=== PATIENT | female | born 1945 | race American Indian/Alaskan Native ===

== ENCOUNTER 2020-04-03 20:06 | Inpatient (IN) | payer MEDICARE ==
[2020-04-03] MEDS ORDERED: levETIRAcetam 1000 MG/NS 0.75% 1,000 MG/100 ML BAG IV ONE (20:14)
--- NOTE | 2020-04-03 20:14 | Emergency Department Report ---
ED Seizure HPI - General Chief Complaint: Altered Mental Status Stated Complaint: SEIZURE Time Seen by Provider: 04/03/20 20:09 Source: patient, EMS Mode of arrival: Stretcher Limitations: Altered Mental Status - History of Present Illness Initial Comments: Patient is a 74-year-old female that presents emergency room with a witnessed seizure. Patient brought in by EMS. Report received from EMS. EMS states that the patient's seizure witnessed by bystanders. The seizure lasted for 2 to 3 minutes per EMS. EMS states that the patient has a history of diabetes, hypertension, dementia, seizure. EMS states the patient's seizures started 1 month ago. Patient had a stroke 2 weeks ago. Patient denies any symptoms. Patient denies chest pain shortness of breath. Patient denies headache. Patient at this time is alert and oriented x2. Patient is oriented to person. MD Complaint: seizure -: Sudden Description of Episode: loss of consciousness, tonic-clonic movement Witnessed:: Yes Trauma: No Seizure History: known seizure disorder Place: other ED Review of Systems ROS: Stated complaint: SEIZURE Other details as noted in HPI Comment: Unobtainable due to pts medical conditions ED Past Medical Hx - Past Medical History Previous Medical History?: Yes Hx Hypertension: Yes Hx CVA: Yes Hx Seizures: Yes - Surgical History Past Surgical History?: No - Family History Family history: no significant - Social History Smoking Status: Never Smoker Substance Use Type: None ED Physical Exam - General Limitations: No Limitations General appearance: alert, in no apparent distress - Head Head exam: Present: atraumatic, normocephalic - Eye Eye exam: Present: normal appearance, PERRL Pupils: Present: normal accommodation - ENT ENT exam: Present: mucous membranes moist - Neck Neck exam: Present: normal inspection - Respiratory Respiratory exam: Present: normal lung sounds bilaterally. Absent: respiratory distress, wheezes, rales - Cardiovascular Cardiovascular Exam: Present: regular rate, normal rhythm. Absent: systolic murmur, diastolic murmur, rubs, gallop - GI/Abdominal GI/Abdominal exam: Present: soft, normal bowel sounds. Absent: distended, tenderness, guarding - Rectal Rectal exam: Present: deferred - Extremities Exam Extremities exam: Present: normal inspection - Back Exam Back exam: Present: normal inspection - Neurological Exam Neurological exam: Present: alert, altered - Psychiatric Psychiatric exam: Present: normal affect, normal mood - Skin Skin exam: Present: warm, dry, intact, normal color. Absent: rash ED Course Vital Signs 04/03/20 20:14 Temperature 97.9 F Pulse Rate 87 Respiratory 14 Rate Blood Pressure 109/73 [left arm] O2 Sat by Pulse 98 Oximetry - Reevaluation(s) Reevaluation #1: I discussed all results with patient. I discussed plan of care with patient. Patient agrees with plan of care and admission. Patient to be admitted to the hospitalist service. 04/03/20 21:53 - Consultations Consultation #1: Hospitalist consulted for admission. Hospitalist to admit patient. 04/03/20 21:54 ED Medical Decision Making - Lab Data Result diagrams: 04/03/20 20:34 04/03/20 20:34 - EKG Data -: EKG Interpreted by Me EKG shows normal: sinus rhythm, axis, intervals, QRS complexes, ST-T waves Rate: normal - Radiology Data Radiology results: report reviewed . CT cervical spine wo con INDICATION / CLINICAL INFORMATION: 74 years Female; Seizure. TECHNIQUE: Axial CT images of the cervical spine were obtained. Sagittal and coronal reformatted images were produced. All CT scans at this location are performed using CT dose reduction for ALARA by means of automated exposure control. COMPARISON: None available. FINDINGS: POST-SURGICAL CHANGES: None. ALIGNMENT: Straightening of cervical spine seen, which may be related to patient positioning. VERTEBRAE: No signs of fracture. Vertebral bodies are grossly normal in height throughout. There is osseous foraminal narrowing on the left at C3-4, C5-6, C6-7 from uncinate and perhaps mild facet hypertrophy. Similar findings on the right at C3-4, C5-6, C6-7. INTRAVERTEBRAL DISCS: Multilevel, mild disc space narrowing seen. There is disc disease at C3-4 which encroaches upon the cervical cord. No impingement appreciated. No dominant herniation otherwise noted. PARASPINAL SOFT TISSUES: No significant abnormality. ADDITIONAL FINDINGS: Scarring type changes seen in the right lung apex. Thyroid gland is mildly prominent in size. IMPRESSION: 1. No signs of acute bony trauma to the cervical spine. CT head/brain wo con INDICATION / CLINICAL INFORMATION: 74 years Female; Seizure. TECHNIQUE: Routine CT head without contrast. All CT scans at this location are performed using CT dose reduction for ALARA by means of automated exposure control. COMPARISON: None. FINDINGS: BRAIN / INTRACRANIAL CONTENTS: Corpus striatal type infarct seen anteriorly in the gangliocapsular region on the mudb-hgj-djqjfwlqxncft without diffusion imaging by MRI. Multiple lacunar infarcts seen in the gangliocapsular regions, as well as both thalamic regions, as well. Otherwise, no acute hemorrhage, mass effect, midline shift, hydrocephalus, or acute, large territorial infarct. Mild cerebral and cerebellar atrophy. Mild to moderate degree of hippocampal atrophy suggested bilaterally. There are mild areas of decreased attenuation in the white matter of the cerebral hemispheres, as well as the gangliocapsular regions. These are nonspecific findings and may be related to microangiopathy (hypertension, diabetes, atherosclerosis), given the patient's age. It might be difficult to evaluate for small areas of ischemia without diffusion imaging by MRI. CRANIOCERVICAL JUNCTION: No significant abnormality. ORBITS: No significant abnormality of visualized orbits. SINUSES / MASTOIDS: No significant abnormality in the visualized paranasal sinuses or mastoid air cells. ADDITIONAL FINDINGS: Atherosclerotic disease is seen in the anterior and posterior circulation. IMPRESSION: 1. No focal mass, hemorrhage, hydrocephalus, or acute, large territorial infarct. Follow-up with diffusion imaging by MRI, as clinically warranted. - Medical Decision Making Patient is a 74-year-old female that presents emergency room with seizure and altered mental status. Patient's baseline mentation is unknown. Patient has history of dementia. Patient was at a nail salon and went into a grand mal seizure that was witnessed. It is unclear from the report from EMS if the patient had any trauma or fall. Patient had a CT scan of the C-spine and of the head to rule out neck injury and head injury and intracranial hemorrhage. Patient has a recent history of seizures. Patient's labs are unremarkable. Patient's EKG is unremarkable. Patient admitted to the hospital service for further evaluation and treatment. Patient will most likely require a EEG and neurology consult. - Differential Diagnosis Seizure, altered mental status, confusion, dehydration, electrolyte imbalan Critical Care Time: Yes Critical care time in (mins) excluding proc time.: 35 Critical care attestation.: If time is entered above; I have spent that time in minutes in the direct care of this critically ill patient, excluding procedure time. Critical Care Time: 35 minutes ED Disposition Clinical Impression: Seizure Altered mental state Qualifiers: Altered mental status type: unspecified Qualified Code(s): R41.82 - Altered mental status, unspecified Disposition: DC-09 OP ADMIT IP TO THIS HOSP Is pt being admited?: Yes Does the pt Need Aspirin: No Condition: Critical Time of Disposition: 21:53
[2020-04-03 20:48] LABS: Basophils % (Auto) 0.8 % (0.0-1.8); Eosinophils # (Auto) 0.1 K/mm3 (0.0-0.4); Eosinophils % (Auto) 1.7 % (0.0-4.3); Hematocrit 31.4 % (30.3-42.9); Hemoglobin 10.1 gm/dl (10.1-14.3); Lymphocytes % (Auto) 17.9 % (13.4-35.0); Mean Corpuscular HGB Conc 32 % (30-34); Mean Corpuscular Volume 92 fl (79-97); Monocytes # (Auto) 0.4 K/mm3 (0.0-0.8); Monocytes % (Auto) 6.8 % (0.0-7.3); Platelet Count 352 K/mm3 (140-440); Red Blood Count 3.41 M/mm3 (3.65-5.03); Red Cell Distribution Width 13.9 % (13.2-15.2)
[2020-04-03 21:14] LABS: Albumin 3.6 g/dL (3.9-5); Calcium 8.6 mg/dL (8.4-10.2)
--- NOTE | 2020-04-03 21:33 | Cat Scan Report ---
CT head/brain wo con INDICATION / CLINICAL INFORMATION: 74 years Female; Seizure. TECHNIQUE: Routine CT head without contrast. All CT scans at this location are performed using CT dos e reduction for ALARA by means of automated exposure control. COMPARISON: None. FINDINGS: BRAIN / INTRACRANIAL CONTENTS: Corpus striatal type infarct seen anteriorly in the gangliocapsular re gion on the eqao-xpy-mcfuqxbonofgm without diffusion imaging by MRI. Multiple lacunar infarcts seen i n the gangliocapsular regions, as well as both thalamic regions, as well. Otherwise, no acute hemorrhage, mass effect, midline shift, hydrocephalus, or acute, large territori al infarct. Mild cerebral and cerebellar atrophy. Mild to moderate degree of hippocampal atrophy suggested bilate rally. There are mild areas of decreased attenuation in the white matter of the cerebral hemispheres, as wel l as the gangliocapsular regions. These are nonspecific findings and may be related to microangiopath y (hypertension, diabetes, atherosclerosis), given the patient's age. It might be difficult to evalua te for small areas of ischemia without diffusion imaging by MRI. CRANIOCERVICAL JUNCTION: No significant abnormality. ORBITS: No significant abnormality of visualized orbits. SINUSES / MASTOIDS: No significant abnormality in the visualized paranasal sinuses or mastoid air deo ls. ADDITIONAL FINDINGS: Atherosclerotic disease is seen in the anterior and posterior circulation. IMPRESSION: 1. No focal mass, hemorrhage, hydrocephalus, or acute, large territorial infarct. Follow-up with diff usion imaging by MRI, as clinically warranted. Signer Name: Humza Ruelas MD, III Signed: 04/03/2020 9:29 PM Workstation Name: [email or web address]
--- NOTE | 2020-04-03 21:41 | Cat Scan Report ---
. CT cervical spine wo con INDICATION / CLINICAL INFORMATION: 74 years Female; Seizure. TECHNIQUE: Axial CT images of the cervical spine were obtained. Sagittal and coronal reformatted images were pr oduced. All CT scans at this location are performed using CT dose reduction for ALARA by means of aut omated exposure control. COMPARISON: None available. FINDINGS: POST-SURGICAL CHANGES: None. ALIGNMENT: Straightening of cervical spine seen, which may be related to patient positioning. VERTEBRAE: No signs of fracture. Vertebral bodies are grossly normal in height throughout. There is osseous foraminal narrowing on the left at C3-4, C5-6, C6-7 from uncinate and perhaps mild f acet hypertrophy. Similar findings on the right at C3-4, C5-6, C6-7. INTRAVERTEBRAL DISCS: Multilevel, mild disc space narrowing seen. There is disc disease at C3-4 which encroaches upon the cervical cord. No impingement appreciated. No dominant herniation otherwise note d. PARASPINAL SOFT TISSUES: No significant abnormality. ADDITIONAL FINDINGS: Scarring type changes seen in the right lung apex. Thyroid gland is mildly prominent in size. IMPRESSION: 1. No signs of acute bony trauma to the cervical spine. Signer Name: Humza Ruelas MD, III Signed: 04/03/2020 9:37 PM Workstation Name: [id number]
[2020-04-03 22:09] LABS: Bilirubin,Urine NEG (Negative); Blood,Urine NEG (Negative); Color,Urine Yellow (Yellow); Hyaline Casts,Urine 7 /LPF; Mucus,Urine 1+ /HPF; Protein,Urine <15 mg/dL mg/dL (Negative); Urobilinogen,Urine < 2.0 mg/dL (<2.0); WBC,Urine < 1.0 /HPF (0.0-6.0)
[2020-04-03 22:17] LABS: Amphetamine Screen,Urine Negative; Benzodiazepines Screen,Urine Negative; Cannabinoid Screen,Urine Negative; Cocaine Screen,Urine Negative; Methadone Screen,Urine Negative; Opiate Screen,Urine Negative
[2020-04-03] MEDS ORDERED: MORPHINE 2 MG/1 ML INJ IV PRN (23:04)
[2020-04-03] MEDS ORDERED: ACETAMINOPHEN 325 MG TAB PO PRN (23:04)
[2020-04-03] MEDS ORDERED: ONDANSETRON 4 MG/2 ML INJ IV PRN (23:04)
[2020-04-03] MEDS ORDERED: MAGNESIUM HYDROXIDE (MOM) ORAL LIQD UDC PO PRN (23:04)
[2020-04-03] MEDS ORDERED: DEXTROSE 50% IN WATER (25GM) 50 ML SYRINGE IV PRN (23:04)
[2020-04-03] MEDS ORDERED: LORazepam 2 MG/ML VIAL IV PRN (23:09)
--- NOTE | 2020-04-03 23:21 | History and Physical Report ---
History of Present Illness Date of examination: 04/03/20 Date of admission: 04/03/20 21:52 Chief complaint: Seizure Disorder History of present illness: 74-year-old female with known history of dementia, hypertension, diabetes mellitus and history of CVA 2 weeks ago brought into the emergency room today via EMS however had a seizure witnessed by bystanders. Seizure was said to have lasted for about 2 to 3 minutes. Most of the history was gotten from the ER staff as patient is only oriented to person. Work-up so far in the emergency room including CT scan of the head and neck has been unremarkable. Patient has been started on Keppra for the seizure disorder. Past History Past Medical History: hypertension, seizures, stroke, other (Dementia) Past Surgical History: No surgical history Social history: no significant social history Family history: no significant family history Medications and Allergies Allergies Allergy/AdvReac Type Severity Reaction Status Date / Time No Known Allergies Allergy Unverified 04/03/20 23:33 Home Medications Medication Instructions Recorded Confirmed Last Taken Type Aspirin 04/04/20 Unknown History AtorvaSTATin 04/04/20 Unknown History Mirapex 04/04/20 Unknown History Namenda Xr 04/04/20 Unknown History Plavix 04/04/20 Unknown History Potassium 04/04/20 Unknown History RisperDAL 04/04/20 Unknown History amLODIPine 04/04/20 Unknown History donepeziL 04/04/20 Unknown History metFORMIN 04/04/20 Unknown History traZODone 04/04/20 Unknown History Active Meds: Active Medications Acetaminophen (Tylenol) 650 mg PO Q4H PRN PRN Reason: Pain MILD(1-3)/Fever >100.5/ABDI Dextrose (D50w (25gm) Syringe) 50 ml IV Q30MIN PRN; Protocol PRN Reason: Hypoglycemia Heparin Sodium (Porcine) (Heparin) 5,000 unit SUB-Q Q8HR LIZZETH Sodium Chloride (Nacl 0.9% 1000 Ml) 1,000 mls @ 75 mls/hr IV DIRECT LIZZETH Levetiracetam 500 mg/ Dextrose 105 mls @ 400 mls/hr IV Q12HR LIZZETH Insulin Human Lispro (Humalog) 0 unit SUB-Q ACHS LIZZETH; Protocol Lorazepam (Ativan) 1 mg IV Q4H PRN PRN Reason: Seizures Magnesium Hydroxide (Milk Of Magnesia) 30 ml PO Q4H PRN PRN Reason: Constipation Morphine Sulfate (Morphine) 2 mg IV Q4H PRN PRN Reason: Pain, Moderate (4-6) Ondansetron HCl (Zofran) 4 mg IV Q8H PRN PRN Reason: Nausea And Vomiting Sodium Chloride (Sodium Chloride Flush Syringe 10 Ml) 10 ml IV BID LIZZETH Sodium Chloride (Sodium Chloride Flush Syringe 10 Ml) 10 ml IV PRN PRN PRN Reason: LINE FLUSH Review of Systems ROS unobtainable: due to mental status Exam - Constitutional Vitals: Temp Pulse Resp BP Pulse Ox 97.9 F 87 14 109/73 98 04/03/20 20:14 04/03/20 20:14 04/03/20 20:14 04/03/20 20:14 04/03/20 20:14 General appearance: Present: no acute distress, well-nourished - EENT Eyes: Present: PERRL, EOM intact. Absent: scleral icterus ENT: hearing intact, clear oral mucosa, dentition normal - Neck Neck: Present: supple, normal ROM - Respiratory Respiratory effort: normal Respiratory: bilateral: CTA - Cardiovascular Rhythm: regular Heart Sounds: Present: S1 & S2. Absent: gallop, systolic murmur, diastolic murmur, rub - Extremities Extremities: no ischemia, pulses intact, pulses symmetrical, No edema, Full ROM Peripheral Pulses: within normal limits - Abdominal General gastrointestinal: Present: soft, non-tender, non-distended, normal bowel sounds, mass - Integumentary Integumentary: Present: clear, warm, dry. Absent: rash - Musculoskeletal Musculoskeletal: strength equal bilaterally - Psychiatric Psychiatric: appropriate mood/affect, intact judgment & insight, memory intact, cooperative - Neurologic Neurologic: CNII-XII intact, no focal deficits, moves all extremities Results - Labs CBC & Chem 7: 04/03/20 20:34 04/03/20 20:34 Labs: Abnormal lab results 04/03/20 04/03/20 Range/Units 20:34 20:34 RBC 3.41 L (3.65-5.03) M/mm3 Lymph # (Auto) 1.0 L (1.2-5.4) K/mm3 Seg Neutrophils % 72.8 H (40.0-70.0) % Carbon Dioxide 21 L (22-30) mmol/L Glucose 110 H (65-100) mg/dL Total Protein 5.8 L (6.3-8.2) g/dL Albumin 3.6 L (3.9-5) g/dL Assessment and Plan - Patient Problems (1) Seizure Current Visit: Yes Status: Acute Plan to address problem: Patient started on Keppra. Will place on seizure precautions. We will requests neurology evaluation. (2) Altered mental state Current Visit: Yes Status: Acute Qualifiers: Altered mental status type: unspecified Qualified Code(s): R41.82 - Altered mental status, unspecified Plan to address problem: Patient possibly postictal however patient has a baseline history of dementia. Will monitor mental status. (3) Hypertension Current Visit: Yes Status: Acute Plan to address problem: We will resume routine home medications and monitor vital signs closely. (4) Diabetes mellitus Current Visit: Yes Status: Acute Plan to address problem: We will continue to monitor Accu-Cheks. (5) DVT prophylaxis Current Visit: Yes Status: Acute Plan to address problem: Patient placed on subcutaneous heparin. (6) Full code status Current Visit: Yes Status: Acute
[2020-04-03] MEDS ORDERED: SODIUM CHLORIDE 0.9% 1000 ML 1,000 ML ONE (23:47)
[2020-04-04] MEDS: SODIUM CHLORIDE 0.9% 1000 ML 1,000 ML IV SCH ×2 (00:15→14:08)
[2020-04-04] MEDS: HEPARIN 5,000 UNIT/1 ML VIAL SUB-Q SCH ×3 (06:50→22:17)
[2020-04-04 08:04] LABS: Basophils % (Auto) 0.6 % (0.0-1.8); Eosinophils # (Auto) 0.1 K/mm3 (0.0-0.4); Hematocrit 31.1 % (30.3-42.9); Hemoglobin 10.3 gm/dl (10.1-14.3); Lymphocytes # (Auto) 1.3 K/mm3 (1.2-5.4); Lymphocytes % (Auto) 22.4 % (13.4-35.0); Mean Corpuscular HGB Conc 33 % (30-34); Mean Corpuscular Volume 90 fl (79-97); Monocytes # (Auto) 0.5 K/mm3 (0.0-0.8); Monocytes % (Auto) 8.9 % (0.0-7.3); Platelet Count 318 K/mm3 (140-440); Red Blood Count 3.47 M/mm3 (3.65-5.03); Red Cell Distribution Width 13.6 % (13.2-15.2)
[2020-04-04 08:14] LABS: INR 1.05 (0.87-1.13)
[2020-04-04 08:17] LABS: Calcium 8.6 mg/dL (8.4-10.2)
--- NOTE | 2020-04-04 09:30 | Progress Note ---
Assessment and Plan (1) Seizure Current Visit: Yes Status: Acute Plan to address problem: Patient started on Keppra. Will place on seizure precautions. We will requests neurology evaluation. (2) Acute metabolic encephalopathy Current Visit: Yes Status: Acute Qualifiers: Altered mental status type: unspecified Qualified Code(s): R41.82 - Altered mental status, unspecified Plan to address problem: Secondary to seizures and hypoglycemia MRI pending (3) Hypertension Current Visit: Yes Status: Acute Plan to address problem: We will resume routine home medications and monitor vital signs closely. (4) Diabetes mellitus Current Visit: Yes Status: Acute Plan to address problem: We will continue to monitor Accu-Cheks. (5) DVT prophylaxis Current Visit: Yes Status: Acute Plan to address problem: Patient placed on subcutaneous heparin. (6) Full code status Current Visit: Yes Status: Acute Subjective Date of service: 04/04/20 Principal diagnosis: Acute encephalopathy, seizure disorder Interval history: 74-year-old female with known history of dementia, hypertension, diabetes mellitus and history of CVA 2 weeks ago brought into the emergency room via EMS for a seizure witnessed by bystanders. Seizure was said to have lasted for about 2 to 3 minutes. Most of the history was gotten from the ER staff as patient is only oriented to person. Work-up so far in the emergency room including CT scan of the head and neck has been unremarkable. Patient has been started on Keppra for the seizure disorder. Objective - Constitutional Vitals: Vital Signs - 12hr 04/03/20 04/03/20 04/03/20 21:46 22:00 22:15 Temperature Pulse Rate 71 81 76 Respiratory 13 12 12 Rate Blood Pressure 119/54 119/54 119/54 O2 Sat by Pulse 100 100 100 Oximetry 04/03/20 04/03/20 04/03/20 22:31 22:45 23:00 Temperature Pulse Rate 73 71 70 Respiratory 11 L 11 L 13 Rate Blood Pressure 127/56 127/56 98/58 O2 Sat by Pulse 100 100 100 Oximetry 04/03/20 04/03/20 04/04/20 23:15 23:57 00:00 Temperature Pulse Rate 73 67 71 Respiratory 11 L 10 L Rate Blood Pressure 98/58 124/67 O2 Sat by Pulse 100 100 100 Oximetry 04/04/20 04/04/20 04/04/20 00:15 00:43 05:14 Temperature 97.6 F Pulse Rate 79 79 81 Respiratory 12 16 Rate Blood Pressure 124/67 144/65 O2 Sat by Pulse 99 99 Oximetry 04/04/20 07:44 Temperature 97.9 F Pulse Rate 82 Respiratory 18 Rate Blood Pressure 126/65 O2 Sat by Pulse 99 Oximetry General appearance: Present: no acute distress, well-nourished - EENT Eyes: PERRL, EOM intact ENT: hearing intact, clear oral mucosa Ears: bilateral: normal - Neck Neck: supple, normal ROM - Respiratory Respiratory effort: normal Respiratory: bilateral: CTA - Breasts Breasts: normal - Cardiovascular Heart rate: 78 Rhythm: regular Heart Sounds: Present: S1 & S2. Absent: gallop, rub Extremities: pulses intact, No edema, normal color, Full ROM - Gastrointestinal General gastrointestinal: Present: soft, non-tender, non-distended, normal bowel sounds - Genitourinary Female genitourinary: normal - Integumentary Integumentary: clear, warm, dry - Musculoskeletal Musculoskeletal: strength equal bilaterally, generalized weakness - Neurologic Neurologic: moves all extremities - Psychiatric Psychiatric: appropriate mood/affect, other (Oriented to person, alert.) - Labs CBC & Chem 7: 04/04/20 07:06 04/04/20 07:06 Labs: Abnormal lab results 04/03/20 04/03/20 04/04/20 Range/Units 20:34 20:34 07:06 RBC 3.41 L 3.47 L (3.65-5.03) M/mm3 [place] % (Auto) 8.9 H (0.0-7.3) % Lymph # (Auto) 1.0 L (1.2-5.4) K/mm3 Seg Neutrophils % 72.8 H (40.0-70.0) % Sodium (137-145) mmol/L Carbon Dioxide 21 L (22-30) mmol/L Creatinine (0.6-1.2) mg/dL Glucose 110 H (65-100) mg/dL POC Glucose (70-105) mg/dL Total Protein 5.8 L (6.3-8.2) g/dL Albumin 3.6 L (3.9-5) g/dL 04/04/20 04/04/20 Range/Units 07:06 08:03 RBC (3.65-5.03) M/mm3 [place] % (Auto) (0.0-7.3) % Lymph # (Auto) (1.2-5.4) K/mm3 Seg Neutrophils % (40.0-70.0) % Sodium 135 L (137-145) mmol/L Carbon Dioxide 21 L (22-30) mmol/L Creatinine 1.3 H (0.6-1.2) mg/dL Glucose 50 L (65-100) mg/dL POC Glucose 63 L (70-105) mg/dL Total Protein (6.3-8.2) g/dL Albumin (3.9-5) g/dL
[2020-04-04] MEDS: INSULIN LISPRO 100 UNIT/ML VIAL 3 mL SUB-Q SCH ×4 (10:16→21:28)
[2020-04-04] MEDS: levETIRAcetam 500 MG in DEXTROSE 5% IN WATER 100 ML IV SCH ×2 (10:18→22:17)
--- NOTE | 2020-04-04 16:05 | Progress Note ---
Assessment and Plan (1) Seizure Current Visit: Yes Status: Acute Plan to address problem: Patient started on Keppra. Will place on seizure precautions. We will requests neurology evaluation. (2) Acute metabolic encephalopathy Current Visit: Yes Status: Acute Qualifiers: Altered mental status type: unspecified Qualified Code(s): R41.82 - Altered mental status, unspecified Plan to address problem: Secondary to seizures and hypoglycemia MRI pending (3) Hypertension Current Visit: Yes Status: Acute Plan to address problem: We will resume routine home medications and monitor vital signs closely. (4) Diabetes mellitus Current Visit: Yes Status: Acute Plan to address problem: We will continue to monitor Accu-Cheks. (5) DVT prophylaxis Current Visit: Yes Status: Acute Plan to address problem: Patient placed on subcutaneous heparin. (6) ALEJANDRA IV fluids for now ALEJANDRA secondary to vasomotor nephropathy and dehydration Subjective Date of service: 04/04/20 Principal diagnosis: Seizure disorder, acute encephalopathy Interval history: 74-year-old female with known history of dementia, hypertension, diabetes mellitus and history of CVA 2 weeks ago brought into the emergency room via EMS for a seizure witnessed by bystanders. Seizure was said to have lasted for about 2 to 3 minutes. Most of the history was gotten from the ER staff as patient is only oriented to person. Work-up so far in the emergency room including CT scan of the head and neck has been unremarkable. Patient has been started on Keppra for the seizure disorder. Patient alert but not eating No seizures Objective - Constitutional Vitals: Vital Signs - 12hr 04/04/20 04/04/20 04/04/20 05:14 07:44 10:00 Temperature 97.6 F 97.9 F Pulse Rate 81 82 70 Respiratory 16 18 Rate Blood Pressure 144/65 126/65 O2 Sat by Pulse 99 99 Oximetry General appearance: Present: no acute distress, well-nourished - EENT Eyes: PERRL, EOM intact ENT: hearing intact, clear oral mucosa Ears: bilateral: normal - Neck Neck: supple, normal ROM - Respiratory Respiratory effort: normal Respiratory: bilateral: CTA - Breasts Breasts: normal - Cardiovascular Heart rate: 78 Rhythm: regular Heart Sounds: Present: S1 & S2. Absent: gallop, rub Extremities: pulses intact, No edema, normal color, Full ROM - Gastrointestinal General gastrointestinal: Present: soft, non-tender, non-distended, normal bowel sounds - Genitourinary Female genitourinary: normal - Integumentary Integumentary: clear, warm, dry - Musculoskeletal Musculoskeletal: 1, strength equal bilaterally - Neurologic Neurologic: moves all extremities - Psychiatric Psychiatric: memory intact, appropriate mood/affect, intact judgment & insight - Labs CBC & Chem 7: 04/04/20 07:06 04/04/20 07:06 Labs: Abnormal lab results 04/03/20 04/03/20 04/04/20 Range/Units 20:34 20:34 07:06 RBC 3.41 L 3.47 L (3.65-5.03) M/mm3 [place] % (Auto) 8.9 H (0.0-7.3) % Lymph # (Auto) 1.0 L (1.2-5.4) K/mm3 Seg Neutrophils % 72.8 H (40.0-70.0) % Sodium (137-145) mmol/L Carbon Dioxide 21 L (22-30) mmol/L Creatinine (0.6-1.2) mg/dL Glucose 110 H (65-100) mg/dL POC Glucose (70-105) mg/dL Total Protein 5.8 L (6.3-8.2) g/dL Albumin 3.6 L (3.9-5) g/dL 04/04/20 04/04/20 04/04/20 Range/Units 07:06 08:03 12:10 RBC (3.65-5.03) M/mm3 [place] % (Auto) (0.0-7.3) % Lymph # (Auto) (1.2-5.4) K/mm3 Seg Neutrophils % (40.0-70.0) % Sodium 135 L (137-145) mmol/L Carbon Dioxide 21 L (22-30) mmol/L Creatinine 1.3 H (0.6-1.2) mg/dL Glucose 50 L (65-100) mg/dL POC Glucose 63 L 137 H (70-105) mg/dL Total Protein (6.3-8.2) g/dL Albumin (3.9-5) g/dL
[2020-04-05] MEDS: SODIUM CHLORIDE 0.9% 1000 ML 1,000 ML IV SCH ×2 (05:44→21:24)
[2020-04-05] MEDS: HEPARIN 5,000 UNIT/1 ML VIAL SUB-Q SCH ×3 (05:45→21:23)
[2020-04-05] MEDS: INSULIN LISPRO 100 UNIT/ML VIAL 3 mL SUB-Q SCH ×4 (08:04→21:24)
[2020-04-05] MEDS: levETIRAcetam 500 MG in DEXTROSE 5% IN WATER 100 ML IV SCH ×2 (09:43→21:24)
--- NOTE | 2020-04-05 13:15 | Progress Note ---
Assessment and Plan (1) Seizure Current Visit: Yes Status: Acute Plan to address problem: Patient started on Keppra. Will place on seizure precautions. We will requests neurology evaluation. (2) Acute metabolic encephalopathy Current Visit: Yes Status: Acute Qualifiers: Altered mental status type: unspecified Qualified Code(s): R41.82 - Altered mental status, unspecified Plan to address problem: Secondary to seizures and hypoglycemia MRI pending (3) Hypertension Current Visit: Yes Status: Acute Plan to address problem: We will resume routine home medications and monitor vital signs closely. (4) Diabetes mellitus Current Visit: Yes Status: Acute Plan to address problem: We will continue to monitor Accu-Cheks. (5) DVT prophylaxis Current Visit: Yes Status: Acute Plan to address problem: Patient placed on subcutaneous heparin. (6) ALEJANDRA IV fluids for now ALEJANDRA secondary to vasomotor nephropathy and dehydration Subjective Date of service: 04/05/20 Principal diagnosis: Seizure disorder, acute encephalopathy Interval history: 74-year-old female with known history of dementia, hypertension, diabetes mellitus and history of CVA 2 weeks ago brought into the emergency room via EMS for a seizure witnessed by bystanders. Seizure was said to have lasted for about 2 to 3 minutes. Most of the history was gotten from the ER staff as patient is only oriented to person. Work-up so far in the emergency room including CT scan of the head and neck has been unremarkable. Patient has been started on Keppra for the seizure disorder. Patient alert but not eating No seizures Objective - Constitutional Vitals: Vital Signs - 12hr 04/05/20 04/05/20 04/05/20 03:38 07:07 10:00 Temperature 98.0 F 98.3 F Pulse Rate 83 75 71 Respiratory 18 18 Rate Blood Pressure 147/71 136/67 O2 Sat by Pulse 98 99 Oximetry General appearance: Present: no acute distress, well-nourished - EENT Eyes: PERRL, EOM intact ENT: hearing intact, clear oral mucosa Ears: bilateral: normal - Neck Neck: supple, normal ROM - Respiratory Respiratory effort: normal Respiratory: bilateral: CTA - Breasts Breasts: normal - Cardiovascular Heart rate: 78 Rhythm: regular Heart Sounds: Present: S1 & S2. Absent: gallop, rub Extremities: pulses intact, No edema, normal color, Full ROM - Gastrointestinal General gastrointestinal: Present: soft, non-tender, non-distended, normal bowel sounds - Genitourinary Female genitourinary: normal - Integumentary Integumentary: clear, warm, dry - Musculoskeletal Musculoskeletal: 1, strength equal bilaterally - Neurologic Neurologic: moves all extremities - Psychiatric Psychiatric: other - Allied health notes Allied health notes reviewed: nursing, case management - Labs CBC & Chem 7: 04/04/20 07:06 04/04/20 07:06 Labs: Abnormal lab results 04/05/20 Range/Units 11:29 POC Glucose 138 H (70-105) mg/dL
[2020-04-06] MEDS: HEPARIN 5,000 UNIT/1 ML VIAL SUB-Q SCH ×2 (05:01→13:09)
--- NOTE | 2020-04-06 08:26 | Magnetic Resonance Report ---
MR brain wo con INDICATION / CLINICAL INFORMATION: AMS. TECHNIQUE: Multiplanar, multisequence MR images of the brain were obtained. COMPARISON: None available. FINDINGS: INTRACRANIAL: No restricted diffusion. Remote right carrera radiata lacunar infarction. No hemorrhage. Ventricular caliber is normal. No extra-axial collection. No mass. No herniation. Major intracrania l vascular flow voids are preserved. Generalized atrophy. Periventricular and centrum semiovale T2 wh ite matter hyperintensities most consistent with sequela of chronic microvascular disease. ORBITS: No significant abnormality of visualized orbits. SINUSES / MASTOIDS: No significant abnormality of visualized sinuses and mastoid air cells. ADDITIONAL FINDINGS: None. IMPRESSION: 1. No acute intracranial abnormality. Signer Name: Gold Jhaveri MD Signed: 04/06/2020 8:22 AM Workstation Name: [id number]
--- NOTE | 2020-04-06 09:37 | Discharge Summary ---
Providers - Providers Date of Admission: 04/03/20 21:52 Date of discharge: 04/06/20 Attending physician: TIMOTHY SHELTON 04/03/20 23:04 Consult to Dietitian/Nutrition [CONS] Routine Physician Instructions: Reason For Exam: Reason for Consult: Diet education Consult to Physician [CONS] Routine Comment: Consulting Provider: SAM PATEL Physician Instructions: Reason For Exam: Seizure disorder Primary care physician: CAREERS COUNSELLOR Hospitalization Condition: Critical Hospital course: Subjective Date of service: 04/06/20 Principal diagnosis: Seizure disorder, acute encephalopathy Interval history: 74-year-old female with known history of dementia, hypertension, diabetes mellitus and history of CVA 2 weeks ago brought into the emergency room via EMS for a seizure witnessed by bystanders. Seizure was said to have lasted for about 2 to 3 minutes. Most of the history was gotten from the ER staff as patient is only oriented to person. Work-up so far in the emergency room including CT scan of the head and neck has been unremarkable. Patient has been started on Keppra for the seizure disorder. Patient alert but not eating No seizures Patient has poor p.o. intake discussed with daughter about her poor p.o. intake and possible PEG tube requirement in the future This to be done as an outpatient. Advised advised about Ensure 1 can twice a day Statins and Metformin was stopped for the time being because of polypharmacy and her blood glucose levels being controlled (1) Seizure Current Visit: Yes Status: Acute Plan to address problem: Patient started on Keppra. Will place on seizure precautions. We will requests neurology evaluation. (2) Acute metabolic encephalopathy Current Visit: Yes Status: Acute Qualifiers: Altered mental status type: unspecified Qualified Code(s): R41.82 - Altered mental status, unspecified Plan to address problem: Secondary to seizures and hypoglycemia MRI pending (3) Hypertension Current Visit: Yes Status: Acute Plan to address problem: We will resume routine home medications and monitor vital signs closely. (4) Diabetes mellitus Current Visit: Yes Status: Acute Plan to address problem: We will continue to monitor Accu-Cheks. (5) DVT prophylaxis Current Visit: Yes Status: Acute Plan to address problem: Patient placed on subcutaneous heparin. (6) ALEJANDRA IV fluids for now ALEJANDRA secondary to vasomotor nephropathy and dehydration Disposition: DC- TO HOME OR SELFCARE Core Measure Documentation - Palliative Care Palliative Care/ Comfort Measures: Not Applicable - Core Measures Any of the following diagnoses?: none Exam - Constitutional Vitals: Temp Pulse Resp BP Pulse Ox 98.3 F 75 18 147/74 100 04/06/20 08:38 04/06/20 08:38 04/06/20 08:38 04/06/20 08:37 04/06/20 08:38 General appearance: Present: no acute distress, well-nourished - EENT Eyes: Present: PERRL ENT: hearing intact, clear oral mucosa - Neck Neck: Present: supple, normal ROM - Respiratory Respiratory effort: normal Respiratory: bilateral: CTA - Cardiovascular Heart rate: 78 Rhythm: regular Heart Sounds: Present: S1 & S2. Absent: rub, click - Extremities Extremities: pulses symmetrical, No edema Peripheral Pulses: within normal limits - Abdominal General gastrointestinal: Present: soft, non-tender, non-distended, normal bowel sounds Female genitourinary: Present: normal - Integumentary Integumentary: Present: clear, warm, dry - Musculoskeletal Musculoskeletal: gait normal, strength equal bilaterally - Psychiatric Psychiatric: appropriate mood/affect, intact judgment & insight - Neurologic Neurologic: CNII-XII intact, moves all extremities - Allied Health Allied health notes reviewed: nursing, case management Plan Follow up with: PRIMARY CARE, [Primary Care Provider] - 3-5 Days Prescriptions: amLODIPine 10 mg PO DAILY #30 Aspirin 325 mg PO DAILY #30 levETIRAcetam [Keppra TAB] 500 mg PO BID #60 tablet Namenda Xr 10 mg PO BID #60 Plavix 75 mg PO QDAY #30 RisperDAL 0.5 mg PO QHS #30 traZODone 50 mg PO QHS #30
[2020-04-06] MEDS: levETIRAcetam 500 MG in DEXTROSE 5% IN WATER 100 ML IV SCH (09:49)
[2020-04-06] MEDS: INSULIN LISPRO 100 UNIT/ML VIAL 3 mL SUB-Q SCH ×3 (09:50→17:01)
--- NOTE | 2020-04-06 12:08 | Consultation ---
History of Present Illness Consult date: 04/06/20 Reason for Consult: Seizure Chief complaint: Seizure History of present illness: 74 yo female with dementia, hypertension, diabetes mellitus, seizure d/o, and history of CVA 2 weeks ago who presents w/ a witnessed seizure. Over the weekend no further seizure activity noted. Patient does not know why she is here and states she feels fine currently. Past History Past Medical History: hypertension, seizures, stroke, other (Dementia) Past Surgical History: No surgical history Social history: no significant social history Family history: no significant family history Medications and Allergies Allergies Allergy/AdvReac Type Severity Reaction Status Date / Time No Known Allergies Allergy Unverified 04/03/20 23:33 Home Medications Medication Instructions Recorded Confirmed Last Taken Type Aspirin 325 mg PO DAILY #30 04/06/20 Unknown Rx Namenda Xr 10 mg PO BID #60 04/06/20 Unknown Rx Plavix 75 mg PO QDAY #30 04/06/20 Unknown Rx RisperDAL 0.5 mg PO QHS #30 04/06/20 Unknown Rx amLODIPine 10 mg PO DAILY #30 04/06/20 Unknown Rx levETIRAcetam [Keppra TAB] 500 mg PO BID #60 tablet 04/06/20 Unknown Rx traZODone 50 mg PO QHS #30 04/06/20 Unknown Rx Active Meds: Active Medications Acetaminophen (Tylenol) 650 mg PO Q4H PRN PRN Reason: Pain MILD(1-3)/Fever >100.5/ABDI Dextrose (D50w (25gm) Syringe) 0 ml IV Q30MIN PRN; Protocol PRN Reason: Hypoglycemia Heparin Sodium (Porcine) (Heparin) 5,000 unit SUB-Q Q8HR LIZZETH Last Admin: 04/06/20 05:01 Dose: 5,000 unit Documented by: Sodium Chloride (Nacl 0.9% 1000 Ml) 1,000 mls @ 75 mls/hr IV DIRECT LIZZETH Last Admin: 04/05/20 21:24 Dose: 75 mls/hr Documented by: Levetiracetam 500 mg/ Dextrose 105 mls @ 400 mls/hr IV Q12HR LIZZETH Last Admin: 04/06/20 09:49 Dose: 400 mls/hr Documented by: Insulin Human Lispro (Humalog) 0 unit SUB-Q ACHS LIZZETH; Protocol Last Admin: 04/06/20 11:39 Dose: Not Given Documented by: Lorazepam (Ativan) 1 mg IV Q4H PRN PRN Reason: Seizures Last Admin: 04/05/20 21:23 Dose: 1 mg Documented by: Magnesium Hydroxide (Milk Of Magnesia) 30 ml PO Q4H PRN PRN Reason: Constipation Morphine Sulfate (Morphine) 2 mg IV Q4H PRN PRN Reason: Pain, Moderate (4-6) Ondansetron HCl (Zofran) 4 mg IV Q8H PRN PRN Reason: Nausea And Vomiting Sodium Chloride (Sodium Chloride Flush Syringe 10 Ml) 10 ml IV BID LIZZETH Last Admin: 04/06/20 09:50 Dose: 10 ml Documented by: Sodium Chloride (Sodium Chloride Flush Syringe 10 Ml) 10 ml IV PRN PRN PRN Reason: LINE FLUSH Review of Systems All systems: negative (as per HPI;) Physical Examination - Vital Signs Vital Signs: Vital Signs Temp Pulse Resp BP Pulse Ox 97.9 F 87 14 109/73 98 04/03/20 20:14 04/03/20 20:14 04/03/20 20:14 04/03/20 20:14 04/03/20 20:14 - Additional Exam Additional Exam: Gen: nad, thin; Head: normocephalic; Eyes: no gaze deviation; no ptosis; ENT: normal vocalization; CVS: warm and well-perfused; Pulm: no respiratory distress;; GI: non-distended; Ext: no edema at distal extremities; Skin: no acute rash at distal extremities; Heme: no pathologic bruising at distal extremities; Neuro: alert, oriented to name, but not age, month, year, no dysarthria, no aphasia, CN 2 - PERRL, visual gonzales decreased on the left, CN 3, 4, 6 - EOMI, CN 5 - facial sensation symmetric to light touch, CN 7 - facial movement symmetric, CN 8 - hearing grossly intact, CN 9, 10 - uvula midline, CN 11 - shrug symmetric, CN 12 - tongue midline; Motor - at least 3/5 at upper exts and at least 4/ at distal lower exts; rhythmic movement (1 Hz) of the right foot that goes away w/ testing; Sensory - light touch symmetric, Cerebellar - fnf /hts slowed/intact, Gait - deferred secondary to seizure precautions; Results - Laboratory Findings CBC and BMP: 04/04/20 07:06 04/04/20 07:06 Abnormal Lab Findings: Abnormal Labs 04/03/20 04/03/20 04/04/20 20:34 20:34 07:06 RBC 3.41 L 3.47 L [place] % (Auto) 8.9 H Lymph # (Auto) 1.0 L Seg Neutrophils % 72.8 H Sodium Carbon Dioxide 21 L Creatinine Glucose 110 H POC Glucose Total Protein 5.8 L Albumin 3.6 L 04/04/20 04/04/20 04/04/20 07:06 08:03 12:10 RBC [place] % (Auto) Lymph # (Auto) Seg Neutrophils % Sodium 135 L Carbon Dioxide 21 L Creatinine 1.3 H Glucose 50 L POC Glucose 63 L 137 H Total Protein Albumin 04/05/20 04/06/20 11:29 11:49 RBC [place] % (Auto) Lymph # (Auto) Seg Neutrophils % Sodium Carbon Dioxide Creatinine Glucose POC Glucose 138 H 114 H Total Protein Albumin Assessment and Plan 74 yo female with dementia, hypertension, diabetes mellitus, seizure d/o, and history of CVA 2 weeks ago who presents w/ a witnessed seizure. 1. Seizure d/o - Keppra 750 mg po bid w/ seizure precautions and seizure restrictions including no driving, self-climb/cook/bath, operation of heavy machinery and/or supervisory role. 2. Hx of CVA - antiplatelet/statin therapy. 3. Hypertension - aim for normotension. 4. DM - aim for euqlycemia. Willie Mcallister MD Neurology
[2020-04-06] MEDS: SODIUM CHLORIDE 0.9% 1000 ML 1,000 ML IV SCH (14:18)
[2020-04-06 18:15] VITALS: BP 136/68
[2020-04-06] MEDS ORDERED: levETIRAcetam 500 MG TAB PO SCH (22:00)
== END 2020-04-06 17:30 | disposition home or self-care (01) | DRG 100 ==
LOC: ED 20:06 → 4A 21:52 → OBSVTOIN 04-04 12:00
PROVIDERS: ADMIT Internal Medicine Geriatric Medicine; ATTEND Internal Medicine
DX: G40.909 Epilepsy, unspecified, not intractable, without status epilepticus (principal); G93.41 Metabolic encephalopathy; N17.0 Acute kidney failure with tubular necrosis; E11.649 Type 2 diabetes mellitus with hypoglycemia without coma; I10 Essential (primary) hypertension; F03.90 Unspecified dementia, unspecified severity, without behavioral disturbance, psychotic disturbance, mood disturbance, and anxiety; Z86.73 Personal history of transient ischemic attack (TIA), and cerebral infarction without residual deficits; E11.65 Type 2 diabetes mellitus with hyperglycemia
CPT/HCPCS: 36415; 70450; 70551; 72125; 80048; 80053; 80307; 81001; 82962; 85025; 85610; 93005; 96365; 96372; 96375; G0378; J1644; J1953; J2060; J7030